=== PATIENT | female | born 1960 | race Caucasian/White ===

== ENCOUNTER 2019-09-30 11:01 | Outpatient (CLI) | payer BC ==
[2019-09-30 18:56] LABS: BASOPHILS % (AUTO) 0.6 %; EOSINOPHILS # (AUTO) 0.4 10^3/uL (0.0-0.7); EOSINOPHILS % (AUTO) 5.5 %; HGB - HEMOGLOBIN 12.8 g/dL (12.0-16.0); LYMPHOCYTES # (AUTO) 1.7 10^3/uL (1.5-3.5); MEAN CORPUSCULAR HEMOGLOBIN 28.6 pg (27.0-31.0); MEAN CORPUSCULAR HGB CONC 31.6 g/dL (32.0-36.0); MEAN CORPUSCULAR VOLUME 90.4 fL (81.0-99.0); MEAN PLATELET VOLUME 10.6 fL (7.9-10.8); MONOCYTES # (AUTO) 0.4 10^3/uL (0.0-1.0); MONOCYTES % (AUTO) 6.4 %; PLT - PLATELET COUNT 183 10^3/uL (130-450); RED BLOOD COUNT 4.48 10^6/uL (4.20-5.40); RED CELL DISTRIBUTION WIDTH 12.9 % (12.0-15.0); WHITE BLOOD COUNT 6.5 x10^3/uL (4.8-10.8)
[2019-09-30 19:15] LABS: ALBUMIN/GLOBULIN RATIO 1.7 (1.0-2.2); ALKALINE PHOSPHATASE 70 IU/L (42-121); ALT ALANINE AMINOTRANSFERASE 19 IU/L (10-60); AST ASPARTATE AMINOTRANSFERASE 24 IU/L (10-42); BILIRUBIN,TOTAL < 0.2 mg/dL (0.2-1.0); BUN - BLOOD UREA NITROGEN 12 mg/dL (6-20); CALCIUM 9.1 mg/dL (8.5-10.3); CARBON DIOXIDE - CO2 27 mmol/L (21-32); CHLORIDE 105 mmol/L (101-111); CHOL/HDL RATIO 4.4 (<4.4); CHOLESTEROL 179 mg/dL; CREATININE 0.7 mg/dL (0.4-1.0); GLUCOSE 105 mg/dL (70-100); HDL CHOLESTEROL 41 mg/dL; LDL CHOLESTEROL,CALCULATED 120 mg/dL; LDL/HDL RATIO 2.9 (<4.4); SODIUM 140 mmol/L (135-145); TOTAL PROTEIN 6.4 g/dL (6.7-8.2); VLDL CHOLESTEROL 18 mg/dL
== END 2019-09-30 23:59 | disposition home or self-care (01) ==
LOC: LAB.WCP 11:01
PROVIDERS: ATTEND Family Medicine
DX: R42 Dizziness and giddiness (principal); E03.9 Hypothyroidism, unspecified; R53.1 Weakness
CPT/HCPCS: 36415; 80053; 80061; 83721; 84443; 85025

== ENCOUNTER 2020-07-11 08:00 | Outpatient (CLI) | payer BC ==
--- NOTE | 2020-07-11 16:58 | XRAY Report ---
PROCEDURE: Knee 3 View RT INDICATIONS: R KNEE PX TECHNIQUE: 3 views of the right knee(s) were acquired. COMPARISON: None. FINDINGS: Bones: No fractures or dislocations. No suspicious bony lesions. Soft tissues: No joint effusion. No suspicious soft tissue calcifications. IMPRESSION: No trauma found, no effusion or loose body seen. Source of the pain is not found. Reviewed by: Adam Vasquez MD on 07/11/2020 4:57 PM PDT Approved by: Adam Vasquez MD on 07/11/2020 4:57 PM PDT Station ID: [id number]
== END 2020-07-11 23:59 | disposition home or self-care (01) ==
LOC: DI.N 08:00
PROVIDERS: ATTEND Physician Assistant Medical
DX: M25.561 Pain in right knee (principal); G89.29 Other chronic pain

== ENCOUNTER 2021-01-18 08:10 | Outpatient (CLI) | payer BC ==
[2021-01-18 12:42] LABS: BASOPHILS # (AUTO) 0.1 10^3/uL (0.0-0.1); BASOPHILS % (AUTO) 0.8 %; EOSINOPHILS # (AUTO) 0.3 10^3/uL (0.0-0.7); EOSINOPHILS % (AUTO) 3.9 %; HCT - HEMATOCRIT 37.6 % (37.0-47.0); HGB - HEMOGLOBIN 12.8 g/dL (12.0-16.0); LYMPHOCYTES # (AUTO) 1.8 10^3/uL (1.5-3.5); MEAN CORPUSCULAR VOLUME 88.1 fL (81.0-99.0); MEAN PLATELET VOLUME 10.7 fL (7.9-10.8); MONOCYTES # (AUTO) 0.4 10^3/uL (0.0-1.0); MONOCYTES % (AUTO) 5.7 %; NEUTROPHILS # (AUTO) 4.1 10^3/uL (1.5-6.6); NEUTROPHILS % (AUTO) 62.1 %; PLT - PLATELET COUNT 190 10^3/uL (130-450); RED BLOOD COUNT 4.27 10^6/uL (4.20-5.40); RED CELL DISTRIBUTION WIDTH 12.4 % (12.0-15.0); WHITE BLOOD COUNT 6.6 x10^3/uL (4.8-10.8)
[2021-01-18 12:47] LABS: RHEUMATOID FACTOR NEGATIVE (Negative)
[2021-01-18 12:52] LABS: ESTIMATED AVERAGE GLUCOSE 120 mg/dL (70-100); HEMOGLOBIN A1c% 5.8 % (4.27-6.07)
[2021-01-18 12:59] LABS: ALBUMIN/GLOBULIN RATIO 1.6 (1.0-2.2); ALKALINE PHOSPHATASE 77 IU/L (42-121); ALT ALANINE AMINOTRANSFERASE 19 IU/L (10-60); AST ASPARTATE AMINOTRANSFERASE 17 IU/L (10-42); BILIRUBIN,TOTAL 0.8 mg/dL (0.2-1.0); BUN - BLOOD UREA NITROGEN 14 mg/dL (6-20); CARBON DIOXIDE - CO2 28 mmol/L (21-32); CHLORIDE 106 mmol/L (101-111); CREATININE 0.6 mg/dL (0.4-1.0); GFR - MDRD 101 (>89); GLUCOSE 119 mg/dL (70-100); POTASSIUM 3.4 mmol/L (3.5-5.0); SODIUM 142 mmol/L (135-145); TOTAL PROTEIN 6.5 g/dL (6.7-8.2); URIC ACID 4.2 mg/dL (2.6-7.2)
[2021-01-18 13:00] LABS: CRP - C-REACTIVE PROTEIN < 1.0 mg/dL (0-1.0)
[2021-01-18 13:09] LABS: THYROID STIMULATING HORMONE 1.52 uIU/mL (0.34-5.60)
[2021-01-18 13:11] LABS: FREE T4 (FREE THYROXINE) 0.98 ng/dL (0.58-1.64)
[2021-01-22 12:22] LABS: ANA SCREEN NEGATIVE (NEGATIVE)
== END 2021-01-18 08:11 | disposition home or self-care (01) ==
LOC: LAB.N 08:10
PROVIDERS: ATTEND Nurse Practitioner
DX: M79.642 Pain in left hand (principal); M79.641 Pain in right hand; M54.50 Low back pain, unspecified; G89.29 Other chronic pain; M54.2 Cervicalgia; N28.1 Cyst of kidney, acquired; E66.9 Obesity, unspecified; E04.1 Nontoxic single thyroid nodule; E03.9 Hypothyroidism, unspecified
CPT/HCPCS: 36415; 80053; 83036; 84439; 84443; 84550; 85025; 85651; 86038; 86140; 86200; 86430

== ENCOUNTER 2021-04-11 08:00 | Outpatient (CLI) | payer BC ==
[2021-04-11 14:48] LABS: B. PARAPERTUSSIS- RESP PCR PAN NOT DETECTED; B. PERTUSSIS- RESP PCR PANEL NOT DETECTED; C. PNEUMONIAE- RESP PCR PANEL NOT DETECTED; CORONAVIRUS 229E-RESP PCR NOT DETECTED; CORONAVIRUS HKU1-RESP PCR NOT DETECTED; CORONAVIRUS NL63-RESP PCR NOT DETECTED; CORONAVIRUS OC43-RESP PCR NOT DETECTED; HUMAN METAPNEUMOVIRUS NOT DETECTED; INFLUENZA A- RESP PCR PANEL NOT DETECTED; INFLUENZA B - RESP PCR PANEL NOT DETECTED; M. PNEUMONIAE- RESP PCR PANEL NOT DETECTED; PARAINFLUENZA VIRUS 1 NOT DETECTED; PARAINFLUENZA VIRUS 2 NOT DETECTED; PARAINFLUENZA VIRUS 3 NOT DETECTED; PARAINFLUENZA VIRUS 4 NOT DETECTED; RHINOVIRUS/ENTEROVIRUS NOT DETECTED; RSV- RESP PCR PANEL NOT DETECTED; SARS-CoV-2 -RESP PCR PANEL NOT DETECTED
== END 2021-04-11 23:59 ==
LOC: LAB 08:00
PROVIDERS: ATTEND Emergency Medicine
DX: J06.9 Acute upper respiratory infection, unspecified (principal); Z20.822 Contact with and (suspected) exposure to COVID-19
CPT/HCPCS: 0202U

== ENCOUNTER 2021-07-02 08:00 | Outpatient (CLI) | payer BC ==
[2021-07-02 12:44] LABS: CREATININE 0.6 mg/dL (0.4-1.0); POTASSIUM 3.5 mmol/L (3.5-5.0)
[2021-07-02 12:50] LABS: BASOPHILS # (AUTO) 0.1 10^3/uL (0.0-0.1); BASOPHILS % (AUTO) 0.8 %; EOSINOPHILS # (AUTO) 0.3 10^3/uL (0.0-0.7); EOSINOPHILS % (AUTO) 5.1 %; HCT - HEMATOCRIT 37.1 % (37.0-47.0); HGB - HEMOGLOBIN 12.5 g/dL (12.0-16.0); LYMPHOCYTES # (AUTO) 1.8 10^3/uL (1.5-3.5); LYMPHOCYTES % (AUTO) 29.3 %; MEAN CORPUSCULAR HEMOGLOBIN 30.1 pg (27.0-31.0); MEAN CORPUSCULAR HGB CONC 33.7 g/dL (32.0-36.0); MEAN CORPUSCULAR VOLUME 89.4 fL (81.0-99.0); MEAN PLATELET VOLUME 10.6 fL (7.9-10.8); MONOCYTES # (AUTO) 0.4 10^3/uL (0.0-1.0); MONOCYTES % (AUTO) 6.1 %; NEUTROPHILS # (AUTO) 3.7 10^3/uL (1.5-6.6); NEUTROPHILS % (AUTO) 58.4 %; PLT - PLATELET COUNT 191 10^3/uL (130-450); RED BLOOD COUNT 4.15 10^6/uL (4.20-5.40); RED CELL DISTRIBUTION WIDTH 12.4 % (12.0-15.0); WHITE BLOOD COUNT 6.3 x10^3/uL (4.8-10.8)
== END 2021-07-02 23:59 ==
LOC: LAB.N 08:00
PROVIDERS: ATTEND Physician Assistant Medical
DX: I10 Essential (primary) hypertension (principal)
CPT/HCPCS: 36415; 80048; 84443; 85025

== ENCOUNTER 2022-01-09 09:35 | Outpatient (CLI) | payer BC ==
--- NOTE | 2022-01-09 15:51 | Ultrasound Report ---
PROCEDURE: Abdomen Limited INDICATIONS: UNBILICAL HERNIA TECHNIQUE: Real-time focused scanning was performed of the abdomen, with image documentation. COMPARISON: None. FINDINGS: A midline periumbilical hernia is seen containing fat, which does not reduce or change wit h Valsalva. Abdominal wall defect measures approximately 0.8 cm in diameter. IMPRESSION: Small fat-containing periumbilical hernia. Reviewed by: Clifford Oliveros MD on 01/09/2022 3:50 PM PDT Approved by: Clifford Oliveros MD on 01/09/2022 3:50 PM PDT Station ID: [id number]
== END 2022-01-09 09:36 | disposition home or self-care (01) ==
LOC: DI 09:35
PROVIDERS: ATTEND Nurse Practitioner
DX: K42.9 Umbilical hernia without obstruction or gangrene (principal)

== ENCOUNTER 2022-05-01 09:23 | Day surgery (SDC) | payer BC ==
[~2022-05-01 09:23] MED LIST: BUPIVACAINE 0.25% PF 30 ML VIAL ONE
[2022-05-01] MEDS ORDERED: LACTATED RINGERS 1,000 ML IV ONE ×2 (09:51→12:48)
[2022-05-01] MEDS ORDERED: BUPIVACAINE 0.5% PF 30 ML VIAL ONE (09:53)
[2022-05-01] MEDS ORDERED: LIDOCAINE-MPF 1% 30 ML VIAL ONE (09:54)
[2022-05-01] MEDS ORDERED: BUPIVACAINE 0.25% PF 30 ML VIAL ONE (09:54)
[2022-05-01] MEDS ORDERED: CEFAZOLIN 2G/50ML 0.9% NS 2 GM/50 ML BAG IV ONE (09:56)
[2022-05-01] MEDS ORDERED: ATROPINE ABBOJECT 1 MG/10 ML SYRINGE IVP PRN (10:39)
[2022-05-01] MEDS ORDERED: MORPHINE 2 MG/ML CARPUJECT IVP PRN (10:39)
[2022-05-01] MEDS ORDERED: METOCLOPRAMIDE 10 MG/2 ML VIAL IVP PRN (10:39)
[2022-05-01] MEDS ORDERED: fentaNYL 100 MCG/2 ML VIAL IVP PRN (10:39)
[2022-05-01] MEDS ORDERED: ONDANSETRON 4 MG/2 ML VIAL IVP PRN ×2 (10:39→12:47)
[2022-05-01] MEDS ORDERED: NALOXONE 0.4 MG/ML VIAL IVP PRN (10:39)
[2022-05-01] MEDS ORDERED: HYDROmorphone 0.5 MG/0.5 ML SYRINGE IVP PRN (10:39)
[2022-05-01] MEDS ORDERED: ePHEDrine 50 MG/ML VIAL IVP PRN (10:39)
--- NOTE | 2022-05-01 10:39 | ANESTHESIA ---
Pre-Anesthesia VS, & Labs - Diagnosis ventral hernia - Procedure open ventral hernia repair with mesh Vital Signs: Temp Pulse Resp BP Pulse Ox O2 Flow Rate 36.3 C L 66 18 172/81 H 97 0 05/01/22 09:51 05/01/22 09:51 05/01/22 09:51 05/01/22 09:51 05/01/22 09:51 05/01/22 09:51 Height: 5 ft 1 in Weight (kg): 82.1 kg Body Mass Index: 34.2 BMI Classification: Obese - NPO >8 hours Last Fluid Intake: sips with am med - Is Patient ?: No - Lab Results Lab results reviewed: Yes Home Medications and Allergies Home Medications: Ambulatory Orders Escitalopram Oxalate [Lexapro] 20 mg PO DAILY 04/17/22 Levothyroxine [Synthroid] 112 mcg PO QDAC 04/17/22 hydroCHLOROthiazide [Hydrodiuril] 25 mg PO DAILY 04/17/22 Escitalopram Oxalate [Lexapro] 20 mg PO DAILY 04/17/22 Levothyroxine [Synthroid] 112 mcg PO QDAC 04/17/22 hydroCHLOROthiazide [Hydrodiuril] 25 mg PO DAILY 04/17/22 Allergies/Adverse Reactions: Allergies Allergy/AdvReac Type Severity Reaction Status Date / Time No Known Drug Allergies Allergy Verified 05/01/22 09:57 Anes History & Medical History - Anesthetic History Anesthesia Complications: reports: No previous complications Family history of Anesthesia Complications: Denies Family history of Malignant Hyperthermia: Denies - Medical History Cardiovascular: reports: Hypertension Pulmonary: reports: None Gastrointestinal: reports: None Urinary: reports: None Musculoskeletal: reports: Fibromyalgia, Chronic back pain Endocrine/Autoimmune: reports: HyPOthyroidism Skin: reports: Other History of Cancer?: No - Surgical History General: Eyes Ears Nose Throat (EENT): reports: Rhinoplasty, Tonsil/Adenoidectomy Gynecologic: reports: Tubal ligation Orthopedic: reports: Other Exam General: Alert, Oriented x3, Cooperative Dental: WNL Mouth Openin Fingerbreadth Neck Mobility: Normal Mallampati classification: II Thyromental Distance: 4-6 cm Respiratory: Lungs clear, Normal breath sounds, No respiratory distress Cardiovascular: Regular rate Neurological: Normal speech Mental/Cognitive Status: Alert/Oriented X3, Normal for patient Cognitive Status: Within normal limits Plan Anesthesia Type: General Consent for Procedure(s) Verified and Reviewed: Yes Code Status: Attempt Resuscitation ASA classification: 2-Mild systemic disease Is this case an emergency?: No
[2022-05-01] MEDS ORDERED: MIDAZOLAM 2 MG/2 ML VIAL ONE (10:52)
[2022-05-01] MEDS ORDERED: PROPOFOL 200 MG/20 ML VIAL IVP ONE (10:53)
[2022-05-01] MEDS ORDERED: ROCURONIUM 50 MG/5 ML VIAL ONE (10:53)
[2022-05-01] MEDS ORDERED: LIDOCAINE-PF 2% 10 ML AMP SUBQ ONE (10:54)
[2022-05-01] MEDS ORDERED: LACTATED RINGERS 1,000 ML IV SCH (11:00)
--- NOTE | 2022-05-01 11:04 | HISTORY & PHYSICAL EXAMINATION ---
Chief Complaint - Chief Complaint Chief Complaint: painful bulge umbilical area History of Present Illness - History Obtained From Records Reviewed: yes History obtained from: pt Exam Limitations: none - History of Present Illness HPI Comment/Other: hernia umbilicus and just above her umbilicus. getting worse History - Past Medical History Cardiovascular: reports: Hypertension Respiratory: reports: None Endocrine/Autoimmune: reports: HyPOthyroidism GI: reports: None : reports: None HEENT: reports: Chronic vision loss Psych: reports: Depression, Anxiety Musculoskeletal: reports: Fibromyalgia, Chronic back pain Derm: reports: Other MRSA Hx?: No - Past Surgical History General: Ortho: reports: Other /ENDOCRINOLOGY NURSE: reports: Tubal ligation HEENT: reports: Rhinoplasty, Tonsil/Adenoidectomy Meds/Allgy - Home Medications Home Medications: Ambulatory Orders Medication Instructions Recorded Confirmed Escitalopram Oxalate [Lexapro] 20 mg PO DAILY 04/17/22 04/17/22 Levothyroxine [Synthroid] 112 mcg PO QDAC 04/17/22 04/17/22 hydroCHLOROthiazide [Hydrodiuril] 25 mg PO DAILY 04/17/22 04/17/22 - Allergies Allergies/Adverse Reactions: Allergies Allergy/AdvReac Type Severity Reaction Status Date / Time No Known Drug Allergies Allergy Verified 05/01/22 09:57 Review of Systems - Other Findings Other Findings: 10 pt ros as above otherwise unremarkable Exam - Vital Signs Reviewed Vital Signs: Yes Vital Signs: Vital Signs x48h Temp Pulse Resp BP Pulse Ox O2 Flow Rate 05/01/22 09:51 36.3 C L 66 18 172/81 H 97 0 - Physical Exam General Appearance: positive: No acute distress, Alert Eyes Bilateral: positive: PERRL, EOMI, No scleral icterus ENT: positive: No signs of dehydration Neck: positive: No JVD, Trachea midline Respiratory: positive: No respiratory distress, Breath sounds nml Cardiovascular: positive: Regular rate & rhythm Abdomen: positive: No distention, Other (2 cm umbilical hernia and 3 cm supraumbilical hernia) Neurologic/Psychiatric: positive: Oriented x3 Conclusion/Plan - Problem List (1) Ventral hernia Conclusion/Plan: plan open repair with mesh. parq held and consent obtained - Lab Results Lab results reviewed: Yes
[2022-05-01] MEDS ORDERED: BUPIVACAINE 0.25% PF 30 ML VIAL SUBQ ONE (11:22)
[2022-05-01] MEDS ORDERED: ePHEDrine 50 MG/ML VIAL IVP ONE (11:56)
[2022-05-01] MEDS ORDERED: SUGAMMADEX 200 MG/2 ML VIAL IVP ONE (12:29)
[2022-05-01] MEDS ORDERED: HYDROcod/ACETAM 5/325 MG TABLET PO PRN (12:47)
[2022-05-01] MEDS ORDERED: HYDROcod/ACETAM 5/325 MG TABLET ONE (14:10)
[2022-05-01 14:13] VITALS: BP 150/97
--- NOTE | 2022-05-01 15:51 | OPERATIVE REPORT ---
Operative Report - General Procedure Date: 05/01/22 Planned Procedure: open repair incarcerated ventral hernia Pre-Op Diagnosis: incacerated ventral hernia Procedure Performed: open repair incarcerated ventral hernia Post Op Diagnosis: incarcerated ventral hernia - Procedure Note Primary Surgeon: rachid huang Anesthesia Technique: General ET tube, Local Pathology: none Estimated Blood Loss (mL): 0 Drain/Tube Type: Other (none) Indications: painful hernia bulges Findings: 2 cm umbilical hernia and 3 cm ventral hernia 1 cm cephalad with 3 cm incarcreated omentum Complications: none - Other Other Information/Narrative: The patient was properly identified brought to the operating room and placed in supine position. General endotracheal anesthesia was induced. Sequential compression devices were placed. She was prepped and draped in a sterile fashion and given preoperative antibiotics. Local anesthetic was given throughout the procedure. Incision was made just cephalad of her umbilicus and extended left lateral of her umbilicus. Dissection proceeded with cutting current cautery. She had 3 to 4 cm of incarcerated adipose tissue or omentum through a 3 cm ventral defect. Incarcerated contents were mobilized away from the surrounding subcutaneous tissue down to the fascial edge. There was an umbilical hernia as well. Umbilical skin was sharply excised away from the umbilical hernia area. A small bridge of fascia between the 2 hernias was released. The peritoneum or hernia sacs was carefully released from the fascial defect edges. A small hole in the peritoneum was closed with a running 3-0 Vicryl suture. A large preperitoneal space was carefully developed. Hemostasis was assured. Approximately 2-1/2 inches wide by 4-1/2 inches tall polypropylene mesh was placed preperitoneal and secured with approximately a dozen interrupted 0 Ethibond sutures. An inner row of additional 0 Ethibond sutures was placed. With the exception of a approximately .5 by 1 cm defect fascia was completely closed over the mesh. Subcutaneous tissue was closed with interrupted 2-0 Vicryl suture. Local skin was tacked back down to fascia with interrupted 2-0 Vicryl suture. Buried interrupted subdermal 3-0 Vicryl sutures were then placed. Skin was closed with a running 4-0 Monocryl subcuticular suture. Dressing was applied. Tolerated the procedure well was awakened and brought to recovery in good condition.
--- NOTE | 2022-05-01 15:56 | ANESTHESIA POST OP EVALUATION ---
Anesthesia Post Eval - Post Anesthesia Eval Vitals: Last Vital Signs Temp 36.3 C L 05/01/22 14:11 Pulse 79 05/01/22 14:11 Resp 16 05/01/22 14:11 BP 150/97 H 05/01/22 14:11 Pulse Ox 94 05/01/22 14:11 O2 Flow Rate 0 05/01/22 09:51 CV Function Including HR & BP: Stable Pain Control: Satisfactory Nausea & Vomiting: Negative Mental Status: Baseline Respiratory Status: Airway Patent Hydration Status: Satisfactory Anesthesia Complications: None
== END 2022-05-01 09:24 | disposition home or self-care (01) ==
LOC: SDS 09:23
PROVIDERS: ATTEND Surgery
DX: K43.6 Other and unspecified ventral hernia with obstruction, without gangrene (principal); K42.9 Umbilical hernia without obstruction or gangrene; E66.9 Obesity, unspecified; Z68.34 Body mass index [BMI] 34.0-34.9, adult; F41.9 Anxiety disorder, unspecified
CPT/HCPCS: 49594; A9270; C1781; J0690; J7120

== ENCOUNTER 2022-10-02 09:30 | Outpatient (CLI) | payer BC ==
[2022-10-02 11:44] LABS: BASOPHILS # (AUTO) 0.1 10^3/uL (0.0-0.1); BASOPHILS % (AUTO) 0.7 %; EOSINOPHILS # (AUTO) 0.4 10^3/uL (0.0-0.7); EOSINOPHILS % (AUTO) 5.5 %; HCT - HEMATOCRIT 37.3 % (37.0-47.0); HGB - HEMOGLOBIN 12.6 g/dL (12.0-16.0); LYMPHOCYTES # (AUTO) 2.1 10^3/uL (1.5-3.5); LYMPHOCYTES % (AUTO) 26.4 %; MEAN CORPUSCULAR HEMOGLOBIN 30.1 pg (27.0-31.0); MEAN CORPUSCULAR HGB CONC 33.8 g/dL (32.0-36.0); MEAN CORPUSCULAR VOLUME 89.2 fL (81.0-99.0); MEAN PLATELET VOLUME 10.2 fL (7.9-10.8); MONOCYTES # (AUTO) 0.5 10^3/uL (0.0-1.0); MONOCYTES % (AUTO) 5.7 %; NEUTROPHILS % (AUTO) 61.3 %; PLT - PLATELET COUNT 222 10^3/uL (130-450); RED BLOOD COUNT 4.18 10^6/uL (4.20-5.40); RED CELL DISTRIBUTION WIDTH 12.6 % (12.0-15.0); WHITE BLOOD COUNT 8.1 x10^3/uL (4.8-10.8)
[2022-10-02 11:57] LABS: ALBUMIN 3.8 g/dL (3.2-5.5); ALBUMIN/GLOBULIN RATIO 1.3 (1.0-2.2); BILIRUBIN,TOTAL 0.3 mg/dL (0.2-1.0); CALCIUM 8.9 mg/dL (8.5-10.3); CREATININE 0.6 mg/dL (0.4-1.0); POTASSIUM 3.1 mmol/L (3.5-5.0); TOTAL PROTEIN 6.7 g/dL (6.7-8.2)
== END 2022-10-02 09:45 | disposition home or self-care (01) ==
LOC: LAB.N 09:30
PROVIDERS: ATTEND Nurse Practitioner
DX: R53.83 Other fatigue (principal)
CPT/HCPCS: 36415; 80053; 85025